=== PATIENT | female | born 1940 | race Caucasian/White ===

== ENCOUNTER 2017-06-24 14:58 | Emergency (ER) | payer MEDICARE ==
[~2017-06-24] VITALS: Ht 165.1 cm; Wt 72.6 kg
[2017-06-24 15:59] VITALS: BP 172/72
--- NOTE | 2017-06-24 16:13 | PHYS DOC ---
Past Medical History Past Medical History: Cancer, Diabetes-Type II, Hypertension, Hypothyroid Past Surgical History: Cholecystectomy, Hysterectomy Additional Past Surgical Histo: Rt nephrectomy Alcohol Use: None Drug Use: None Adult General Chief Complaint Chief Complaint: BACK INJURY HPI HPI Patient is a 76 year old female with history of hypertension, hypothyroidism, diabetes type 2, who presents today status post falling at 4 AM this morning. Patient states she slipped and fell in her house. Patient denies any loss of consciousness. She is complaining of posterior head pain, neck pain and low back pain. She is also complaining of hand pain as well. Patient denies taking any anticoagulants including aspirin. Denies hitting her head on the ground. PCP Dr. Isi Qiu. Review of Systems Review of Systems Constitutional: Denies fever or chills [] Eyes: Denies change in visual acuity, redness, or eye pain [] HENT: Denies nasal congestion or sore throat [] Respiratory: Denies cough or shortness of breath [] Cardiovascular: No additional information not addressed in HPI [] GI: Denies abdominal pain, nausea, vomiting, bloody stools or diarrhea [] : Denies dysuria or hematuria [] Musculoskeletal: Neck pain, low back pain, and left hand pain Integument: Denies rash or skin lesions [] Neurologic: Posterior head pain Endocrine: Denies polyuria or polydipsia [] Current Medications Current Medications Current Medications Medications (Trade) Dose Ordered Sig/Lv Start Time Stop Time Status Last Admin Dose Admin Acetaminophen (Tylenol) 500 mg 1X ONCE 06/24/17 16:15 06/24/17 16:16 DC 06/24/17 16:40 500 MG Allergies Allergies Allergies Coded Allergies Type Severity Reaction Last Updated Verified diazepam Allergy Intermediate 06/24/17 Yes erythromycin base Allergy Intermediate 06/24/17 Yes Physical Exam Physical Exam Constitutional: Well developed, well nourished, no acute distress, non-toxic appearance. [] HENT: Normocephalic, atraumatic, bilateral external ears normal, oropharynx moist, no oral exudates, nose normal. [] Eyes: PERRLA, EOMI, conjunctiva normal, no discharge. [] Neck: Patient is in a c-collar. Patient has mild tenderness to the midline cervical spine. Limited range of motion to the lumbar spine due to pain, supple , no stridor. [] Cardiovascular:Heart rate regular rhythm, no murmur [] Lungs & Thorax: Bilateral breath sounds clear to auscultation [] Abdomen: Bowel sounds normal, soft, no tenderness, no masses, no pulsatile masses. [] Skin: Warm, dry, no erythema, no rash. [] Back: Diffuse paraspinal muscle tenderness to bilateral lumbar spine as well as mild midline lumbar spine tenderness, no CVA tenderness. [] Extremities: Left hand with bruising noted along the fourth and fifth metacarpals. Tenderness along the area as well. Full range of motion to the left hand and fingers. +2 left radial pulse. Cap refill less than 2 seconds and left fingers. Adequate radial medial sensation to the left hand. Neurologic: Alert and oriented X 3, normal motor function, normal sensory function, no focal deficits noted. Cranial nerves II through XII intact Psychologic: Affect normal, judgement normal, mood normal. [] Current Patient Data Vital Signs Vital Signs Date Time Temp Pulse Resp B/P (MAP) Pulse Ox O2 Delivery O2 Flow Rate FiO2 06/24/17 15:59 98.0 67 20 98 Room Air 98.0 EKG EKG [] Radiology/Procedures Radiology/Procedures [] Course & Med Decision Making Course & Med Decision Making Pertinent Labs and Imaging studies reviewed. (See chart for details) Patient is in the ED with complaints of posterior head pain, neck pain and lumbar spine pain and left hand pain after falling early this morning. Left hand x-rays interpreted by radiologist was negative for any acute findings. CT of the head and cervical spine and lumbar spine interpreted by radiologist are negative for any acute findings. Patient discharged with instructions to take Tylenol as needed for pain. Follow-up with her own PCP in 1-2 weeks. Dragon Disclaimer Dragon Disclaimer This electronic medical record was generated, in whole or in part, using a voice recognition dictation system. Departure Departure Impression: Primary Impression: Fall from standing Additional Impressions: Lumbar contusion Acute cervical sprain Sprain of hand, left Disposition: 01 HOME, SELF-CARE Condition: STABLE Referrals: ALYSA BHATIA MD (PCP) Follow-up with your doctor in one week Patient Instructions: Back Pain, Adult, Cervical Sprain, Contusion, Easy-to- Read, Fall Prevention and Home Safety Additional Instructions: You were seen for head pain, neck pain, back pain and left hand pain after falling. Take Tylenol as needed for pain. Follow-up with your doctor in 1-2 weeks as needed. You can apply heat or ice to the affected areas. Problem Qualifiers Primary Impression: Fall from standing Encounter type: initial encounter Qualified Codes: W19.XXXA - Unspecified fall, initial encounter Additional Impressions: Lumbar contusion Encounter type: initial encounter Qualified Codes: S30.0XXA - Contusion of lower back and pelvis, initial encounter Acute cervical sprain Encounter type: initial encounter Qualified Codes: S13.9XXA - Sprain of joints and ligaments of unspecified parts of neck, initial encounter Sprain of hand, left Encounter type: initial encounter Qualified Codes: S63.92XA - Sprain of unspecified part of left wrist and hand, initial encounter EVARISTO SALCEDO [employer] Jun 24, 2017 16:13
[2017-06-24] MEDS ORDERED: ACETAMINOPHEN 500 MG TABLET PO ONE (16:15)
--- NOTE | 2017-06-24 16:35 | RAD ---
Three-view left hand radiographs 06/24/2017 Clinical history: Left hand pain post fall. PA, lateral and oblique digital radiographs of the left hand were obtained. There is diffuse osteopenia of the visualized bony structures. No fracture or dislocation of the left hand is seen. Mild to moderate degenerative changes are seen throughout the interphalangeal joints and MCP joints of the left hand. Mild to moderate degenerative changes are seen involving the carpal metacarpal joints, the mid carpal joint and radiocarpal joint of the left wrist. Impression: No fracture or dislocation of the left hand is seen.
--- NOTE | 2017-06-24 16:58 | RAD ---
CT scan of the head without contrast 06/24/2017 Clinical History: Head pain post fall. Technique: Unenhanced, contiguous, 5 mm axial sections were obtained through the head. One or more of the following individualized dose reduction techniques were utilized for this study: 1. Automated exposure control. 2. Adjustment of the mA and/or kV according to patient size. 3. Use of iterative reconstruction technique. Findings: No previous studies are available for comparison. There is generalized parenchymal atrophy. Small scattered areas of decreased attenuation are seen within the periventricular and subcortical white matter of both cerebral hemispheres consistent with areas of small vessel ischemic disease. No acute parenchymal abnormality is seen. No extra-axial fluid collection is noted. No skull fracture is seen. Impression: No acute intracranial abnormality is seen. CT scan of the cervical spine without contrast 06/24/2017 Clinical history: Neck pain post fall. Technique: Unenhanced, contiguous, 0.625 mm axial sections were obtained through the cervical spine. 3 mm reconstructed sagittal, axial, and and coronal images were obtained. One or more of the following individualized dose reduction techniques were utilized for this study: 1. Automated exposure control. 2. Adjustment of the mA and/or kV according to patient size. 3. Use of iterative reconstruction technique. Findings: Sagittal and coronal reconstructed images demonstrate minimal lateral curvature of the cervical spine convex to the left. Degenerative changes are seen throughout the cervical disc spaces consisting of vertebral endplate sclerosis and minimal to mild predominantly anterior vertebral body osteophyte formation. No fracture or subluxation of the cervical vertebrae is seen. Degenerative changes are seen involving the uncovertebral and facet joints throughout the cervical disc spaces. Impression: No fracture or subluxation of the cervical vertebra is seen.
--- NOTE | 2017-06-24 17:19 | RAD ---
Indication: Fall and back pain. Axial imaging through the lumbar spine was performed without contrast. Sagittal and coronal reformations were also performed. One or more of the following individualized dose reduction techniques were utilized for this examination: 1. Automated exposure control 2. Adjustment of the mA and/or kV according to patient size 3. Use of iterative reconstruction technique Curvature and alignment of the lumbar spine is normal. The vertebral body heights are maintained. No acute compression fracture is detected. The disc spaces are fairly well-maintained. There does appear to be trefoil stenosis to the canal at the L3-4 and L4-5 levels due to ligamentous thickening and broad-based disc/osteophyte complex. The paraspinous tissues are unremarkable. 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 No acute bony abnormality is detected. Electronically signed by: Chinmay Corona MD (06/24/2017 5:16 PM) [facility]
== END 2017-06-24 17:47 | disposition home or self-care (01) ==
LOC: ER 14:58
DX: S13.4XXA Sprain of ligaments of cervical spine, initial encounter (principal); S63.92XA Sprain of unspecified part of left wrist and hand, initial encounter; S30.0XXA Contusion of lower back and pelvis, initial encounter; E03.9 Hypothyroidism, unspecified; E11.9 Type 2 diabetes mellitus without complications; I10 Essential (primary) hypertension; Z88.1 Allergy status to other antibiotic agents; Z88.8 Allergy status to other drugs, medicaments and biological substances; W01.0XXA Fall on same level from slipping, tripping and stumbling without subsequent striking against object, initial encounter; Y93.89 Activity, other specified; Y99.8 Other external cause status; Y92.89 Other specified places as the place of occurrence of the external cause
CPT/HCPCS: 70450; 72125; 72131; 73130; 99284-25